=== PATIENT | female | born 1955 | race Asian ===

== ENCOUNTER 2019-09-13 14:51 | Outpatient (CLI) | payer OTHER, SELFPAY ==
--- NOTE | ~2019-09-13 | MM_ITS ---
EXAMINATION: MM screening dimas BI w vy HISTORY: Screening mammogram TECHNIQUE: Craniocaudal and mediolateral oblique 3-D tomosynthesis images were obtained and synthetic 2-D images were generated. CAD analysis was submitted and interpreted. COMPARISON: 10/09/2010 BREAST PARENCHYMAL COMPOSITION: There are scattered areas of fibroglandular density. FINDINGS: There is no evidence of suspicious mass, calcification, or architectural distortion to sugg est malignancy in either breast. There has been no suspicious interval change. IMPRESSION: 1. No mammographic evidence of malignancy. 2. Recommend routine screening mammography in one year. BI-RADS Category 1: Negative Reviewed, dictated and finalized at location A. M [employer]
== END 2019-09-13 14:52 | disposition home or self-care (01) ==
LOC: ANHIMG 14:54
PROVIDERS: PCP Family Medicine; Visit Provider Family Medicine
DX: Z12.31 Encounter for screening mammogram for malignant neoplasm of breast (principal)
CPT/HCPCS: 77063; 77067

== ENCOUNTER 2020-05-29 12:36 | Outpatient (NON) | payer OTHER, SELFPAY ==
[2020-05-30 19:54] LABS: SARS-CoV-2 RNA PCR Negative
== END 2020-05-29 12:37 ==
LOC: ANHCOVIDDT 12:38
PROVIDERS: PCP Family Medicine; Visit Provider Nurse Practitioner Family
DX: Z20.828 Contact with and (suspected) exposure to other viral communicable diseases (principal)
CPT/HCPCS: 87635; C9803; U0003

== ENCOUNTER 2021-01-10 07:52 | Outpatient (CLI) | payer OTHER, SELFPAY ==
--- NOTE | ~2021-01-10 | MM_ITS ---
EXAMINATION: MM screening dimas BI w vy HISTORY: Screening mammogram TECHNIQUE: Craniocaudal and mediolateral oblique 3-D tomosynthesis images were obtained and synthetic 2-D images were generated. CAD analysis was submitted and interpreted. COMPARISON: 09/13/2019, 10/09/2010 bilateral digital screening mammogram examinations BREAST PARENCHYMAL COMPOSITION: There are scattered areas of fibroglandular density. FINDINGS: There is no evidence of suspicious mass, calcification, or architectural distortion to sugg est malignancy in either breast. There has been no suspicious interval change. IMPRESSION: 1. No mammographic evidence of malignancy. 2. Recommend routine screening mammography in one year. BI-RADS Category 1: Negative Reviewed, dictated and finalized at location A.
--- NOTE | ~2021-01-10 | DEXA_ITS ---
Bone Density Report Name: Donna Mata Age: 65 Sex: Female Ethnicity: White Date of : 1955 Indication: postmenopausal; height loss; Referring Provider: Jovita Pereira Study: Bone densitometry was performed. Exam Date: January 10, 2021 Accession number: [id number] Bone Density: Region BMD T-score Z-score Classification AP Spine (L1, L2, L3) 0.906 -1.0 0.7 Normal Femoral Neck (Left) 0.749 -0.9 0.6 Normal Total Hip (Left) 0.888 -0.4 0.8 Normal Total Hip Bilateral Avg 0.886 -0.5 0.8 Normal Femoral Neck (Right) 0.756 -0.8 0.7 Normal Total Hip (Right) 0.882 -0.5 0.7 Normal World Health Organization criteria for BMD impression classify patients as: Normal (T-score at or above -1.0), Osteopenia (T-score between -1.0 and -2.5), or Osteoporosis (T-score at or below -2.5). 10-year Fracture Risk: FRAX not reported because: All T-scores for Spine Total, Hip Total, Femoral Neck at or above -1.0 Previous Exams: Region Exam Age BMD T-score BMD Change BMD Change Date g/cm2 vs Baseline vs Previous AP Spine(L1, L2, L3) 01/10/2021 65 0.906 -1.0 0.000(0.0%) 0.000(0.0%) 10/07/2017 61 0.906 -1.0 Total Hip(Left) 01/10/2021 65 0.888 -0.4 -0.143(-13.9%) -0.143(-13.9%) 10/07/2017 61 1.031 0.7 Total Hip(Right) 01/10/2021 65 0.882 -0.5 -0.147(-14.3%) -0.147(-14.3%) 10/07/2017 61 1.029 0.7 *Denotes significance at 95% confidence level, LSC for AP Spine = 0.022 g/cm2, LSC for Total Hip = 0.027 g/cm2 Clinical Information Provided by Patient: Has used the following medications: Vitamin D Patient maximum height was 60 Menopause Age: 51 Does not regularly consume dairy products Drinks caffeinated beverages Onset of menses at age 10 Number of children 3 Impression: The patient has normal bone mass. The BMD for the Total Hip(Left) decreased, changing by -13.9% since the last DXA exam. The BMD for the Total Hip(Right) decreased, changing by -14.3% since the last DXA exam. Discussion: BONE DENSITY IS ABOVE THE MINIMUM DESIRABLE LEVEL AT ALL SKELETAL SITES TESTED. This patient?s bone mineral density is above the minimum desirable level (T-score -1.0 or better) at all sites measured. The patient should follow a healthful lifestyle (good nutrition with adequate calcium and vitamin D, and appropriate weight-bearing exercise). Follow-Up: Consider repeating this study in 3 to 4 years to reassess this patient's status, or sooner if there is some new
== END 2021-01-10 07:53 | disposition home or self-care (01) ==
LOC: ANHIMG 07:55
PROVIDERS: PCP Family Medicine; Visit Provider Nurse Practitioner Family
DX: Z12.31 Encounter for screening mammogram for malignant neoplasm of breast (principal); Z78.0 Asymptomatic menopausal state
CPT/HCPCS: 77063; 77067; 77080

== ENCOUNTER 2021-01-16 14:01 | Outpatient (RCR) | payer MEDICARE, OTHER, SELFPAY ==
--- NOTE | 2021-01-16 14:56 | PTOPEVAL ---
PHYSICAL THERAPY EVALUATION AND PLAN OF CARE Thank you for referring Donna Mata to [facility] [place] The patient is not scheduled at this time. Per her request, she will call in two weeks to update me on her status with exercises and knee pain. Please review, sign, date and return this plan of care OKSANA. I agree with and certify that the following plan of care is medically necessary. Referring Physician Date Attending Provider: Jovita Pereira NP Evaluation Diagnosis right knee pain Onset 1month Subjective Information Donna is here today with acute Query Text:As Reported By Patient/ on chronic right knee pain. In Family 2003, she had a small tear in her tendon in the right knee and she did therapy at the time and she did well. In the last month she fell in the bathroom and she has had pain in the right knee since then. She has pain when she goes on a walk (~45minutes). Also notes that sitting for a long time and then getting up to walk, she has the pain in the knee. Self Report Pain Assessment Right Knee(s) Reported Pain Level 0 Pain Description Aching,Dull Pain Frequency Acute,Intermittent Lowest Pain Intensity 0 Greatest Pain Intensity 5 Pain Aggravating Factors Sitting,Walking Pain Behaviors None Pain Score Pain Score 0: Self Report Interventions Used Interventions Used By Clinicians Exercise Lower Extremity Range of Motion Knee Range of Motion Right Knee Flexion Range of Motion - Active 134 Knee Extension Range of Motion - Active 0 Query Text: Lower Extremity Muscle Strength Testing Hip Strength Right Hip Flexion Strength 5 Normal Hip Extension Strength 3+ Fair + Hip Abduction Strength 3+ Fair + Knee Strength Right Knee Flexion Strength 4 Good Knee Extension Strength 4- Good - Muscle Length Testing Muscle Length Testing Right Prone Knee Flexor Muscle Length ( 115 degrees) Left Prone Knee Flexor Muscle Length ( 135 degrees) Muscle Length Testing Comments anterior tibialis right shortened Palpation Assessment Palpation Palpation moderately hypomobile patella on right General Exercise General Exercises Side Right Exercise Location knee Exercise Type
--- NOTE | 2021-02-11 11:26 | PCPTNOTE ---
PHYSICAL THERAPY DISCHARGE NOTE Attending Provider: Jovita Pereira NP Patient:Donna Mata Date of :1955 Patient has not returned for any further treatments since 01/16/2021, therefore will be discharged at this time. Patient?s initial visit was on 01/16/2021. She had requested some exercises and was going to call and update me on her progress. Thank you for referring this patient to [facility]. Please review, sign, date and return this discharge summary OKSANA. I have been updated about the patient's current status and I agree with discharge from the above service at this time. Referring Physician Date
== END 2021-04-02 09:15 | disposition home or self-care (01) ==
LOC: ANHPT 14:01
PROVIDERS: PCP Family Medicine; Visit Provider Nurse Practitioner Family
DX: M25.561 Pain in right knee (principal)
CPT/HCPCS: 97110; 97161

== ENCOUNTER → 2022-01-23 02:01 | Outpatient (CLI) | payer MEDICARE, OTHER, SELFPAY ==
[2022-01-23 12:08] LABS: Influenza A QL RT-PCR Negative (Negative); Influenza B QL RT-PCR Negative (Negative); SARS-CoV-2 RNA PCR Positive
== END ==
PROVIDERS: PCP Internal Medicine; Visit Provider Nurse Practitioner
DX: U07.1 COVID-19 (principal); R50.9 Fever, unspecified
CPT/HCPCS: 87502; C9803; U0003; U0005

== ENCOUNTER 2022-06-18 15:27 | Outpatient (CLI) | payer MEDICARE, OTHER, SELFPAY ==
[2022-06-18 16:34] LABS: SARS-CoV-2 RNA PCR Negative
== END 2022-06-18 15:28 | disposition home or self-care (01) ==
PROVIDERS: PCP Internal Medicine; Visit Provider Nurse Practitioner
DX: R05.9 Cough, unspecified (principal); Z20.822 Contact with and (suspected) exposure to COVID-19
CPT/HCPCS: U0003; U0005

== ENCOUNTER 2022-10-11 09:38 | Emergency (ER) | payer MEDICARE, OTHER, SELFPAY ==
--- NOTE | ~2022-10-11 | CT_ITS ---
EXAMINATION: CTA chest PE protocol DATE: 10/11/2022 12:12 INDICATION: Chest pain, elevated d-dimer TECHNIQUE: Computed tomography angiography (CTA) of the chest was performed with 100 mL Omnipaque-350 intravenous contrast timed to evaluate the pulmonary arteries. Coronal maximum intensity projection 3D-reconstructions were created by the technologist. The dose-length product (DLP) was 315.76 mGy-cm. Automated exposure control and iterative reconstruction technique were employed. COMPARISON: None. FINDINGS: The pulmonary arteries are well-opacified. No pulmonary embolism is identified. There is mi ld dependent atelectasis. There is a 7 mm nodule of the left lower lobe (image 71). No pathologically enlarged thoracic lymph nodes are identified. The heart size is normal. No pleural effusion or pneum othorax. There is a small sliding hiatal hernia. There is moderate thoracic spondylosis. IMPRESSION: 1. No pulmonary embolus identified. 2. 7 mm nodule of the left lower lobe, probably benign in the absence of known malignancy. Follow-up CT in 3-6 months is recommended. Reviewed, dictated and finalized at location A.
--- NOTE | ~2022-10-11 | XR_ITS ---
EXAMINATION: XR chest 2V DATE: 10/11/2022 10:34 INDICATION: Left-sided chest pain TECHNIQUE: AP and lateral views of the chest are obtained. COMPARISON: 06/23/2009 FINDINGS: The lungs are free of acute opacities. No pleural effusion or pneumothorax. The cardiomedia stinal silhouette is normal. There is moderate thoracic spondylosis. IMPRESSION: 1. No acute cardiopulmonary abnormality. Reviewed, dictated and finalized at location A.
[2022-10-11 09:39] VITALS: BP 156/89; PULSE 61; RESP 16; TEMP 36.9; O2SAT 100
--- NOTE | 2022-10-11 09:57 | ECG_ITS ---
Measurements Intervals [place] Rate: 59 P: 48 MN: 140 QRS: -14 QRSD: 97 T: 73 QT: 395 QTc: 393 Interpretive Statements SINUS BRADYCARDIA BASELINE ARTIFACT- V6 BORDERLINE ECG NO PREVIOUS ECG AVAILABLE FOR COMPARISON Electronically Signed On 10-11-2022 15:47:14 CDT by Eduardo Winter D.O.
--- NOTE | 2022-10-11 10:01 | ED.CHESTPAIN ---
HPI - Chest Pain General Chief Complaint: Chest Pain Stated Complaint: CP Time Seen by Provider: 10/11/22 09:47 Source: patient and EMS Mode of arrival: EMS Limitations: no limitations History of Present Illness HPI narrative: 66 years old female came to the emergency room by ambulance because left side chest pain radiating to left shoulder blade started 30 minutes prior to arrival to the emergency room by ambulance while going downstairs. Worse with breathing, nothing make it better, was 8 out of 10, currently 7 out of 10 patient received 2 tablets of aspirin in the ambulance and 2 tablets on arrival to the ED. She denies any fever, chills, nausea, vomiting, shortness of breath. Patient reported having similar symptoms years ago secondary to hyperventilation. History of hyperlipidemia, hypothyroidism . Patient does not smoke or drink or uses drugs. Patient reports that the chest pain gets worse with deep breathing. Patient's daughter told me that she been carrying her 9 months old grandson all day long yesterday Which is uncommon. Related Data Home Medications Medication Instructions Recorded Confirmed cholecalciferol (vitamin D3) 25 25 mcg PO DAILY 11/20/19 11/14/21 mcg (1,000 unit) capsule multivitamin 1 tablet PO DAILY 03/11/21 11/14/21 Allergies Allergy/AdvReac Type Severity Reaction Status Date / Time No Known Allergies Allergy Mild Verified 03/11/21 09:08 Review of Systems Review of Systems: All systems reviewed & are unremarkable except as noted in HPI and below PMFSH Past Medical History Medical History Arthritis Colonoscopy planned 2017 Frequent headaches GERD without esophagitis HLD (hyperlipidemia) Hypothyroidism (acquired) Mammogram normal 2019 Plantar fasciitis bilateral Postmenopausal Family History Family History Father Family history of premature coronary heart disease, Onset Age: 75 Hypertension Patient's father is Depression Anxiety Mother Hypertension Daughter Anxiety Depression Social History Social History Social History: . 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 Daughter is CRITICAL CARE RN physician. 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 Heart: Regular rate/rhythm Abdomen: Soft, nontender, no organomegaly, quiet bowel sounds Vascular: Normal peripheral pulses, normal capillary refill. Musculoskeletal: Normal range of motion, nontender back Neurologic: Alert and oriented ?3, OUTSOLE PARAFFINER is normal as tested, no gross motor deficit Course Vital Signs Vital signs: Vital Signs Temperature 36.9 C 10/11/22 09:39 Pulse Rate 61 10/11/22 09:39 Respiratory Rate 16 10/11/22 09:39 Blood Pressure 156/89 H 10/11/22
[2022-10-11 10:16] LABS: Alveolar/Arterial O2 Gradient 40.7 mmHg; Base Excess ABG 0.4 mEq/l (+/-2.0); Fractional Inspired Oxygen 21 %; HCO3 ABG 21.6 mEq/l (22.0-26.0); Oxygen Content ABG 17.3 %vol (16.0-22.0); Oxyhemoglobin 95.3 % THb (90.0-100.0); PCO2 ABG 25.8 mmHg (35.0-45.0); PO2 ABG 78.1 mmHg (80.0-100.0); PO2 FiO2 Ratio Arterial Blood 3.72 %; Total Hemoglobin 12.9 g/dL (12.0-18.0)
[2022-10-11] MEDS: LORazepam INJ (*CRX) 2 MG/ML VIAL 1 MG IV PUSH (10:16)
--- NOTE | 2022-10-11 10:17 | PC.NURSE ---
Upon RN arrival to administer pt medication, pt denies any chest pain. RN holding nitro at this time. Pt also has received a full dose of aspirin prior to arrival and RN held aspirin.
[2022-10-11 10:18] LABS: Device ROOM AIR; Modified Allen's Test Pass; Site Drawn RIGHT RADIAL; pH ABG 7.541 (7.350-7.450)
[2022-10-11 10:19] VITALS: O2SAT 100
[2022-10-11 10:20] LABS: Basophils Percent Auto 0.4 % (0.2-1.2); Eosinophils Absolute Auto 0.2 K/mm3 (0-0.3); Hematocrit 41.4 % (37.0-47.0); Hemoglobin 12.9 g/dL (12.0-15.0); Immature Granulocyte Absolute 0.01 K/mm3 (0.00-0.031); Immature Granulocyte Percent A 0.2 % (0-0.5); Lymphocytes Absolute Auto 1.94 K/mm3 (0.9-3.2); Lymphocytes Percent Auto 38.9 % (18.3-44.2); Mean Corpuscular HGB Conc 31.2 g/dl (32-36); Mean Corpuscular Hemoglobin 26.7 pg (26-34); Mean Corpuscular Volume 85.5 fl (80-100); Mean Platelet Volume 11.9 fl (7.4-10.4); Monocytes Absolute Auto 0.3 K/mm3 (0.1-0.6); Monocytes Percent Auto 6.6 % (2.6-8.5); Neutrophils Absolute Auto 2.5 K/mm3 (1.3-6.7); Neutrophils Percent Auto 50.9 % (45.5-73.1); Platelet Count Result 201 k/mm3 (150-375); Red Blood Count 4.84 M/mm3 (4.2-5.4); Red Cell Distribution Width 14.7 % (11.5-14.5)
[2022-10-11 10:31] LABS: Prothrombin Time 12.7 Seconds (11.1-14.7)
[2022-10-11 10:32] LABS: Partial Thromboplastin Time 32.8 SECONDS (22.3-36.8)
[2022-10-11 10:46] LABS: Alanine Aminotransferase 27 U/L (6-35); Albumin Level 4.6 g/dL (3.5-5.1); Alkaline Phosphatase 79 U/L (38-126); Anion Gap 8 mmol/L (8-16); Aspartate Amino Transferase 31 U/L (14-36); Bilirubin,Total 0.7 mg/dL (0.2-1.3); Blood Urea Nitrogen 12 mg/dL (7-17); Calcium 9.6 mg/dL (8.4-10.2); Carbon Dioxide 25 mmol/L (22-30); Chloride 108 mmol/L (98-107); Estimated CRCL calculation 62 ml/min; Estimated Glomerular Filt Rate > 60; Glucose 104 mg/dL (65-110); Lipase 83 U/L (23-300); Potassium 4.1 mmol/L (3.4-5.0); Sodium 141 mmol/L (137-145)
[2022-10-11 10:53] LABS: Troponin I < 0.012 ng/mL (0.000-0.034)
[2022-10-11 10:59] LABS: D Dimer 0.54 ug/mL (<0.48)
[2022-10-11 11:07] VITALS: BP 169/86; PULSE 56; RESP 14; O2SAT 98
[2022-10-11 13:12] VITALS: BP 172/98; PULSE 66; RESP 16; O2SAT 98
--- NOTE | 2022-10-11 13:49 | ECG_ITS ---
Measurements Intervals [place] Rate: 67 P: 33 MO: 147 QRS: -8 QRSD: 112 T: 65 QT: 397 QTc: 420 Interpretive Statements SINUS RHYTHM NORMAL ECG COMPARED TO ECG 10/11/2022 09:41:37 SINUS RHYTHM NOW PRESENT Electronically Signed On 10-11-2022 15:57:52 CDT by Eduardo Winter D.O.
[2022-10-11 14:01] VITALS: BP 146/77; PULSE 61; RESP 16; O2SAT 99
[2022-10-11 14:14] LABS: Troponin I < 0.012 ng/mL (0.000-0.034)
== END 2022-10-11 14:29 | disposition home or self-care (01) ==
PROVIDERS: Emergency Provider Emergency Medicine; PCP Internal Medicine
DX: R91.1 Solitary pulmonary nodule (principal); R07.9 Chest pain, unspecified; E78.5 Hyperlipidemia, unspecified; E03.9 Hypothyroidism, unspecified; M19.90 Unspecified osteoarthritis, unspecified site; K21.9 Gastro-esophageal reflux disease without esophagitis; R00.1 Bradycardia, unspecified
CPT/HCPCS: 36415; 36600; 71046; 71275; 80053; 82805; 83690; 84484; 85025; 85380; 85610; 85730; 93005; 96374; 99284; J2060; Q9967